=== PATIENT | female | born 1975 | race Two or more races ===

== ENCOUNTER → 2019-12-23 | Emergency (ER) | payer SELFPAY ==
[~2019-12-23] VITALS: Ht 154.9 cm; Wt 81.6 kg
[~2019-12-23] MED LIST: levoFLOXacin 250 MG TAB PO ONE
[2019-12-23 20:45] VITALS: BP 121/76
== END | disposition home or self-care (01) ==
LOC: ER 20:15
DX: U07.1 COVID-19 (principal); J18.9 Pneumonia, unspecified organism; R05 Cough
CPT/HCPCS: 71045; 99284; U0003